=== PATIENT | male | born 1975 | race Two or more races ===

== ENCOUNTER 2018-03-12 22:07 | Emergency (ER) | payer MEDICAID ==
[~2018-03-12] VITALS: Ht 175.3 cm; Wt 90.7 kg
--- NOTE | 2018-03-12 23:02 | NUR ---
PATIENT AMBULATING WITH STEADY GAIT AROUND UNIT. SPEAKING WITH CLEAR SPEECH. PATIENT WITH NO DISTRESS NOTED
--- NOTE | 2018-03-12 23:13 | NUR ---
[facility] INTO INTERVIEW PATIENT
[2018-03-12 23:26] LABS: *BILIRUBIN,URIN NEGATIVE (NEGATIVE); *BLOOD, URINE Trace-lysed (NEGATIVE); *CLARITY,URINE CLEAR (CLEAR); *COLOR,URINE YELLOW (YELLOW); *KETONES,URINE NEGATIVE (NEGATIVE); *PROTEIN,URINE NEGATIVE (NEGATIVE); *UROBILINOGEN,URINE 0.2 E.U./dl (NORMAL); LEUKOCYTE ESTERASE ,URINE NEGATIVE (NEGATIVE); NITRITE, URINE NEGATIVE (NEGATIVE); PH,URINE 6.5 (5.0-8.0); UGLUCOSE NEGATIVE (NEGATIVE)
[2018-03-12 23:37] LABS: *AMPHETAMINE, URINE NEGATIVE (NEGATIVE); *BARBITURATE, URINE NEGATIVE (NEGATIVE); *CANNABINOID, URINE NEGATIVE (NEGATIVE); *COCCAINE, URINE NEGATIVE (NEGATIVE); *OPIATE, URINE NEGATIVE (NEGATIVE); *PHENCYCLIDINE SCREEN,URINE NEGATIVE (NEGATIVE)
--- NOTE | 2018-03-12 23:45 | NUR ---
PATIENT OUT OF UNIT FOR CT SCAN VIA WHEELCHAIR
[2018-03-12 23:47] LABS: ETHANOL 387 MG/DL (0-0)
[2018-03-12 23:47] LABS: BACTERIA,URINE NONE SEEN /HPF (NONE SEEN); RBC,URINE 0-3 /HPF (0-3); SQUAMOUS EPITHELIAL CELL,UR FEW /HPF (NONE SEEN); WBC,URINE NONE SEEN /HPF (0-3)
[2018-03-12 23:48] LABS: CARBON DIOXIDE 25 mmol/L (21-32); CHLORIDE 102 mmol/L (98-107); CREATININE 0.8 mg/dL (0.6-1.3); GLUCOSE 128 mg/dL (74-106); UREA NITROGEN, BLOOD 7 mg/dL (7-18)
[2018-03-12 23:53] LABS: ALANINE AMINOTRANSFERASE 114 U/L (16-63); ALKALINE PHOSPHATASE 130 U/L (50-136); ASPARTATE AMINOTRANSFERASE 77 U/L (15-37); BILIRUBIN,DIRECT 0.2 mg/dL (0.0-0.2); BILIRUBIN,TOTAL 0.6 mg/dL (0.2-1.0)
[2018-03-12 23:54] LABS: ACETAMINOPHEN < 2.0 ug/mL (10-30); TOTAL PROTEIN, SERUM 9.2 g/dL (6.4-8.2)
[2018-03-12 23:59] LABS: BASOPHILS # (AUTO) 0.1 K/uL (0.0-8.0); BASOPHILS % (AUTO) 1.2 % (0.0-2.0); EOSINOPHILS # (AUTO) 0.1 K/uL (0.0-0.7); EOSINOPHILS % (AUTO) 1.3 % (0.0-7.0); HEMATOCRIT 48.5 % (36.7-47.1); HEMOGLOBIN 16.7 g/dL (12.5-16.3); LYMPHOCYTES # (AUTO) 1.4 K/uL (20.0-40.0); LYMPHOCYTES % (AUTO) 29.7 % (20.5-51.5); MEAN CORPUSCULAR HEMOGLOBIN 30.6 uug (23.8-33.4); MEAN CORPUSCULAR HGB CONC 34 g/dL (32.5-36.3); MEAN CORPUSCULAR VOLUME 89.1 fL (73.0-96.2); MONOCYTES # (AUTO) 0.6 K/uL (2.0-10.0); MONOCYTES % (AUTO) 11.8 % (0.0-11.0); NEUTROPHILS # (AUTO) 2.7 K/uL (1.8-8.9); PLATELET COUNT (AUTO) 107 K/uL (152-348); RED BLOOD CELL COUNT(AUTO) 5.44 MIL/uL (4.06-5.63); WHITE BLOOD COUNT (AUTO) 4.8 K/uL (3.6-10.2)
--- NOTE | 2018-03-13 00:01 | NUR ---
PATIENT BACK FROM CT SCAN WITH NO DISTRESS NOTED
--- NOTE | 2018-03-13 00:59 | NUR ---
Patient discharged to home in stable conditon. Written and verbal after care instructions given. Patient verbalizes understanding of instructions. Pt ambulated from ER w/ steady gait. No distress noted. Denies N/V, or pain. Denies SOB. Pt took all personal belonings.
[2018-03-13 01:00] VITALS: BP 136/87
== END 2018-03-13 01:01 | disposition home or self-care (01) ==
LOC: ER 22:10
DX: S02.672A Fracture of alveolus of left mandible, initial encounter for closed fracture (principal); S06.0X0A Concussion without loss of consciousness, initial encounter; F17.200 Nicotine dependence, unspecified, uncomplicated; Y08.89XA Assault by other specified means, initial encounter; Y92.89 Other specified places as the place of occurrence of the external cause; Y93.89 Activity, other specified; Y99.8 Other external cause status
CPT/HCPCS: 36415; 70030-TC; 70450; 70486; 71045; 72125; 80307; 83605; 85025; 85730; 87040; 87086; A4663; G0480; G0480-TC